=== PATIENT | female | born 1990 | race Caucasian/White ===

== ENCOUNTER 2021-04-19 | Inpatient (IN) | payer BC ==
[2021-04-19] MEDS ORDERED: Water For Irrigation,Sterile 1,000 ML Container IRR PRN (00:31)
[2021-04-19] MEDS ORDERED: Ondansetron 4 MG/2 ML SDV IVPUSH PRN (00:31)
[2021-04-19] MEDS ORDERED: Sodium Chloride 0.9% 20 ML SDV IV PRN (00:31)
[2021-04-19] MEDS ORDERED: Tranexamic Acid 1,000 MG in Sodium Chloride 0.9% 100 ML IV PRN (00:31)
[2021-04-19] MEDS ORDERED: Butorphanol 1 MG/ML SDV IVPUSH PRN (00:31)
[2021-04-19] MEDS ORDERED: Misoprostol 200 MCG Tab PO PRN (00:31)
[2021-04-19] MEDS ORDERED: Methylergonovine 0.2 MG/1 ML Amp IM PRN (00:31)
[2021-04-19] MEDS ORDERED: Nalbuphine 10 MG/1 ML Vial IVPUSH PRN (00:31)
[2021-04-19] MEDS ORDERED: Sodium Chloride 0.9% 2.5 ML Syringe FLUSH PRN (00:31)
[2021-04-19] MEDS ORDERED: Lidocaine 1% 50 ML MDV INJECT PRN (00:31)
[2021-04-19] MEDS ORDERED: Sodium Chloride 0.9% 10 ML Syringe FLUSH PRN (00:31)
[2021-04-19] MEDS ORDERED: Carboprost Tromethamine 250 MCG/1 ML Amp IM PRN (00:31)
[2021-04-19] MEDS: Lactated Ringers 1,000 ML IV SCH ×3 (00:35→09:23)
[2021-04-19] MEDS ORDERED: Oxytocin/0.9 % Sodium Chloride 30 UNIT/500 ML BAG IV SCH ×2 (00:45→02:15)
[2021-04-19] MEDS ORDERED: Misoprostol 25 MCG (1/4 of 100 MCG) Tab VAG ONE (01:39)
[2021-04-19] MEDS ORDERED: Misoprostol 25 MCG (1/4 of 100 MCG) Tab PO ONE (01:39)
[2021-04-19] MEDS ORDERED: Terbutaline 1 MG/ML SDV SUBCUT PRN (02:10)
[2021-04-19] MEDS ORDERED: fentaNYL 100 MCG/2 ML SDV ONE (09:20)
[2021-04-19] MEDS ORDERED: Ropivacaine HCl/PF 200 ML ONE (09:21)
[2021-04-19] MEDS ORDERED: Lidocaine 2% 5 ML SDV ONE (09:21)
[2021-04-19] MEDS ORDERED: ePHEDrine 50 MG/ML SDV IVPUSH PRN ×2 (09:44)
[2021-04-19] MEDS ORDERED: Ropivacaine/PF 400 MG/200 ML PCA EPIDUR SCH (09:45)
--- NOTE | 2021-04-19 09:46 | PCM.PREANE ---
Preanesthetic Assessment - Anesthesia/Transfusion/Family Hx Anesthesia History: Prior Anesthesia Without Reaction Transfusion History: No Prior Transfusion(s) Intubation History: Unknown - Review of Systems General: No Symptoms Pulmonary: No Symptoms Cardiovascular: No Symptoms Gastrointestinal: No Symptoms Neurological: No Symptoms Other: Reports: None - Physical Assessment NPO Status Date: 04/19/21 NPO Status Time: 06:00 Vital Signs: Last Vital Signs Temp 98.2 F 04/19/21 07:15 Pulse 76 04/19/21 07:15 Resp 18 04/19/21 07:15 BP 123/77 04/19/21 07:15 Pulse Ox Height: 5 ft 5 in Weight: 212 lb ASA Class: 2 Mental Status: Alert & Oriented x3 Airway Class: Mallampati = 2 Dentition: Reports: Normal Dentition Thyro-Mental Finger Breadths: 3 Mouth Opening Finger Breadths: 3 ROM/Head Extension: Full Lungs: Clear to Auscultation, Normal Respiratory Effort Cardiovascular: Regular Rate, Regular Rhythm - Lab Values: Laboratory Last Values WBC 9.73 K/uL (4.0-11.0) 04/19/21 00:50 RBC 3.82 M/uL (4.30-5.90) L 04/19/21 00:50 Hgb 9.2 g/dL (12.0-16.0) L 04/19/21 00:50 Hct 28.1 % (36.0-46.0) L 04/19/21 00:50 MCV 73.6 fL (80.0-98.0) L 04/19/21 00:50 MCH 24.1 pg (27.0-32.0) L 04/19/21 00:50 MCHC 32.7 g/dL (31.0-37.0) 04/19/21 00:50 RDW Std Deviation 38.6 fl (28.0-62.0) 04/19/21 00:50 RDW Coeff of Aram 15 % (11.0-15.0) 04/19/21 00:50 Plt Count 232 K/uL (150-400) 04/19/21 00:50 MPV 10.90 fL (7.40-12.00) 04/19/21 00:50 Nucleated RBC % 0.0 /100WBC 04/19/21 00:50 Nucleated RBCs # 0 K/uL 04/19/21 00:50 SARS-CoV-2 RNA (JOHAN) NEGATIVE (NEGATIVE) 04/19/21 00:55 Blood Type O POSITIVE 04/19/21 00:50 Antibody Screen NEGATIVE 04/19/21 00:50 - Allergies Allergies/Adverse Reactions: Allergies Allergy/AdvReac Type Severity Reaction Status Date / Time No Known Allergies Allergy Verified 04/19/21 00:51 - Blood Blood Available: Yes - Acknowledgements Anesthesia Type Planned: Epidural Pt an Appropriate Candidate for the Planned Anesthesia: Yes Alternatives and Risks of Anesthesia Discussed w Pt/Guardian: Yes Pt/Guardian Understands and Agrees with Anesthesia Plan: Yes PreAnesthesia Questionnaire HEENT History: Reports: None Cardiovascular History: Reports: Other (See Below) Other Cardiovascular History: 2019 - PreEclampsia during 2nd Respiratory History: Reports: None Gastrointestinal History: Reports: None Genitourinary History: Reports: None 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 Low serum progesterone level. 2018 - SAB @ 10 weeks. 10/14/2018 - @ 36+6 weeks - female - 6# 5oz - preeclampsia. 11/08/2019 - @ 39+4 weeks - male - 8# 6oz - OP presentation Musculoskeletal History: Reports: Other (See Below) Other Musculoskeletal History: Restless leg syndrome Neurological History: Reports: None Psychiatric History: Reports: Anxiety, Depression Endocrine/Metabolic History: Reports: None Hematologic History: Reports: Anemia Immunologic History: Reports: None Oncologic (Cancer) History: Reports: None Dermatologic History: Reports: None - Infectious Disease History Infectious Disease History: Reports: Chicken Pox - Past Surgical History Head Surgeries/Procedures: Reports: None HEENT Surgical History: Reports: Oral Surgery Other HEENT Surgeries/Procedures: 2014 - [place] Teeth Cardiovascular Surgical History: Reports: None Respiratory Surgical History: Reports: None GI Surgical History: Reports: Other (See Below) Other GI Surgeries/Procedures: Esophageal surgery as a 3 month old r/t reflux Female Surgical History: Reports: LEEP, Other (See Below) Other Female Surgeries/Procedures: 2017 - Colposcopy and LEEP r/t ASCUS, positive high risk HPV and ADITHYA-1 Endocrine Surgical History: Reports: None Neurological Surgical History: Reports: None Musculoskeletal Surgical History: Reports: None Oncologic Surgical History: Reports: None Dermatological Surgical History: Reports: None - SUBSTANCE USE Tobacco Use Status *Q: Never Tobacco User Tobacco Use Within Last Twelve Months: No Second Hand Smoke Exposure: No Recreational Drug Use History: No - HOME MEDS Home Medications: Home Meds Calcium Carbonate [Calcium] 500 mg PO DAILY 11/07/19 [History] No122/Iron/Folic Acid [ Multi Tablet] 1 each PO DAILY 11/07/19 [History] Acetaminophen [Tylenol] 650 mg PO Q4H PRN tablet 11/10/19 [Rx] Ibuprofen [Motrin] 600 mg PO Q4H PRN tablet 11/10/19 [Rx] - CURRENT (IN HOUSE) MEDS Current Meds: Current Medications Butorphanol Tartrate (Butorphanol 1 Mg/Ml Sdv) 1 mg IVPUSH Q1H PRN PRN Reason: Pain (severe 7-10) Last Admin: 04/19/21 07:27 Dose: 1 mg Documented by: Carboprost Tromethamine (Carboprost Tromethamine 250 Mcg/1 Ml Amp) 250 mcg IM ASDIRECTED PRN PRN Reason: Post Hemorrhage Oxytocin/Sodium Chloride (Oxytocin 30 Unit In Ns 0.9% 500 Ml Premix) 30 unit in 500 mls @ 500 mls/hr IV TITRATE SHARI Tranexamic Acid 1,000 mg/ (Sodium Chloride) 110 mls @ 660 mls/hr IV ONETIME PRN PRN Reason: Bleeding Lactated Ringer's (Ringers, Lactated) 1,000 mls @ 150 mls/hr IV ASDIRECTED SHARI Last Admin: 04/19/21 09:23 Dose: 150 mls/hr Documented by: Oxytocin/Sodium Chloride (Oxytocin 30 Unit In Ns 0.9% 500 Ml Premix) 30 unit in 500 mls @ 2 mls/hr IV TITRATE SHARI; Protocol Last Titration: 04/19/21 09:32 Dose: 4 munits/min, 4 mls/hr Documented by: Lidocaine HCl (Lidocaine 1% 50 Ml Mdv) 50 ml INJECT ONETIME PRN PRN Reason: Laceration repair Methylergonovine Maleate (Methylergonovine 0.2 Mg/1 Ml Amp) 0.2 mg IM ASDIRECTED PRN PRN Reason: Post Hemorrhage Misoprostol (Misoprostol 200 Mcg Tab) 200 mcg PO ONETIME PRN PRN Reason: Post Hemorrhage Nalbuphine HCl (Nalbuphine 10 Mg/1 Ml Vial) 10 mg IVPUSH Q1H PRN PRN Reason: Pain (severe 7-10) Ondansetron HCl (Ondansetron 4 Mg/2 Ml Sdv) 4 mg IVPUSH Q4H PRN PRN Reason: Nausea/Vomiting Sodium Chloride (Sodium Chloride 0.9% 10 Ml Syringe) 10 ml FLUSH ASDIRECTED PRN PRN Reason: Keep Vein Open Sodium Chloride (Sodium Chloride 0.9% 2.5 Ml Syringe) 2.5 ml FLUSH ASDIRECTED PRN PRN Reason: Keep Vein Open Sodium Chloride (Sodium Chloride 0.9% 20 Ml Sdv) 10 ml IV ASDIRECTED PRN PRN Reason: IV Use Sterile Water (Water For Irrigation,Sterile 1,000 Ml Container) 1,000 ml IRR ASDIRECTED PRN PRN Reason: delivery Terbutaline Sulfate (Terbutaline 1 Mg/Ml Sdv) 0.25 mg SUBCUT ASDIRECTED PRN PRN Reason: Tacysystole Discontinued Medications Fentanyl (Fentanyl 100 Mcg/2 Ml Sdv) Confirm Administered Dose 100 mcg .ROUTE .STK-MED ONE Stop: 04/19/21 09:21 Ropivacaine (Naropin 0.2%) Confirm Administered Dose 200 mls @ as directed .ROUTE .STK-MED ONE Stop: 04/19/21 09:22 Lidocaine (Lidocaine 2% 5 Ml Sdv) Confirm Administered Dose 5 ml .ROUTE .STK-MED ONE Stop: 04/19/21 09:22 Misoprostol (Misoprostol 25 Mcg (1/4 Of 100 Mcg) Tab) 25 mcg PO ONETIME ONE Stop: 04/19/21 01:40 Last Admin: 04/19/21 01:54 Dose: Not Given Documented by: Misoprostol (Misoprostol 25 Mcg (1/4 Of 100 Mcg) Tab) 25 mcg VAG ONETIME ONE Stop: 04/19/21 01:40 Last Admin: 04/19/21 01:51 Dose: 25 mcg Documented by:
--- NOTE | 2021-04-19 09:47 | PCM.POSTAN ---
POST ANESTHESIA ASSESSMENT - MENTAL STATUS Mental Status: Alert, Oriented - VITAL SIGNS Vital Signs: Last Vital Signs Temp 98.2 F 04/19/21 07:15 Pulse 76 04/19/21 07:15 Resp 18 04/19/21 07:15 BP 123/77 04/19/21 07:15 Pulse Ox - RESPIRATORY Respiratory Status: Respiratory Rate WNL, Airway Patent, O2 Saturation Stable - CARDIOVASCULAR CV Status: Pulse Rate WNL, Blood Pressure Stable - GASTROINTESTINAL GI Status: No Symptoms - POST OP HYDRATION Hydration Status: Adequate & Stable
--- NOTE | 2021-04-19 09:51 | PCM.SN.2 ---
- Pre-Procedure Checklist Attending Provider Aware: Yes Chart Reviewed: Yes Consent Signed: Yes Labs Reviewed: Yes VS/FHR Reviewed: Yes Patient Identification Confirmation Method: Reports: ID Band Visual, Verbal Patient Pt an Appropriate Candidate for the Planned Anesthesia: Yes Alternatives and Risks of Anesthesia Discussed w Pt/Guardian: Yes - Procedure Procedure Start Date: 04/19/21 Procedure Start Time: 09:[address]: Reports: Blood Pressure, Heart Rate, SPO2 Functional IV: Yes Safety Measures: Reports: Patient Identified, Procedure Verified, Site Verified, Procedure Time Out Patient Position: Reports: Sitting Prep: Reports: Alcohol x3, Betadine x3 Local Anesthetic: Reports: Intradermal Wheal w Lidocaine 1% Regional Placement Level: Reports: L2-3 Needle: Reports: 17 g Touhy Approach: Reports: Midline Technique: Reports: WILSON Glass Syringe Parasthesia: Reports: None Fluid Obtained: Reports: None Test Dose Medication: Reports: Lidocaine 1.5% w Epinephrine 1:200,000 Test Dose Response: Reports: Negative Loading Dose Time: 09:15 Loading Dose Medication: Fentanyl 100mcg Continuous Infusion Start Time: 09:20 Continuous Infusion Medication: 0.2% Naropin Continuous Infusion Rate: 15 Continuous Infusion PCS Bolus Option: 4 Continuous Infusion Lockout Dose (cc/hr): 20 Patient Position Post Placement: Reports: Supline/YANNA Post-procedure Pain Level: 2 VS and FHR Monitored in Unit Post Placement: Yes Procedure End Date: 04/19/21 Procedure End Time: 10:11
[2021-04-19] MEDS ORDERED: Benzocaine/Menthol 20%-0.5% Spray 78 GM Cannister TOP PRN (12:46)
[2021-04-19] MEDS ORDERED: Lanolin 100% Cream 7 GM Tube TOP PRN (12:46)
[2021-04-19] MEDS ORDERED: Bisacodyl 10 MG Supp RECTAL PRN (12:46)
[2021-04-19] MEDS ORDERED: oxyCODONE 5 MG Tab PO PRN (12:46)
[2021-04-19] MEDS ORDERED: Docusate Sodium 100 MG Cap PO PRN (12:46)
[2021-04-19] MEDS ORDERED: Acetaminophen 500 MG Tab PO PRN (12:46)
[2021-04-19] MEDS ORDERED: Witch Hazel Medicated Pads 40/Jar TOP PRN (12:46)
[2021-04-19] MEDS ORDERED: Ibuprofen 400 MG Tab PO PRN (12:46)
--- NOTE | 2021-04-19 12:50 | PCM.DEL ---
L & D Note - General Info Date of Service: 04/19/21 Mother's Due Date: 04/26/21 - Delivery Note Labor: Augmented by Oxytocin Cervical Ripening Method: Misoprostil Delivery Outcome: Livebirth Delivery Method: Spontaneous Vaginal Delivery-Single Presentation: Left Occiput Anterior (DENNYS) Nuchal Cord: Present (x1, tight) Anesthesia Type: Epidural Amniotic Fluid Description: Clear Episiotomy Type: None Laceration: 1st Degree Suture type: Vicryl Suture size: 2-0 Placenta: Intact, Spontaneous Cord: 3 Vessels Estimated Blood Loss: 200 Resuscitation Needed: No : Bulb Syringe, Stimulated, Moca Used Provider: Caron Zavala Score 1 min: 8 Score 5 min: 9 Delivery Comments (Free Text/Narrative):: Dictation #[id number] - General Info Date of Service: 04/19/21 - Patient Data Vitals - Most Recent: Last Vital Signs Temp 98.2 F 04/19/21 07:15 Pulse 76 04/19/21 07:15 Resp 18 04/19/21 07:15 BP 123/77 04/19/21 07:15 Pulse Ox Weight - Most Recent: 212 lb I&O - Last 24 Hours: Intake & Output 04/18/21 04/19/21 04/19/21 22:59 06:59 14:59 Intake Total 1907 Balance 1907 Lab Results Last 24 Hours: Laboratory Results - last 24 hr 04/19/21 04/19/21 04/19/21 Range/Units 00:50 00:50 00:55 WBC 9.73 (4.0-11.0) K/uL RBC 3.82 L (4.30-5.90) M/uL Hgb 9.2 L (12.0-16.0) g/dL Hct 28.1 L (36.0-46.0) % MCV 73.6 L (80.0-98.0) fL MCH 24.1 L (27.0-32.0) pg MCHC 32.7 (31.0-37.0) g/dL RDW Std Deviation 38.6 (28.0-62.0) fl RDW Coeff of Aram 15 (11.0-15.0) % Plt Count 232 (150-400) K/uL MPV 10.90 (7.40-12.00) fL Nucleated RBC % 0.0 /100WBC Nucleated RBCs # 0 K/uL SARS-CoV-2 RNA (JOHAN) NEGATIVE (NEGATIVE) Blood Type O POSITIVE Antibody Screen NEGATIVE Med Orders - Current: Current Medications Butorphanol Tartrate (Butorphanol 1 Mg/Ml Sdv) 1 mg IVPUSH Q1H PRN PRN Reason: Pain (severe 7-10) Last Admin: 04/19/21 07:27 Dose: 1 mg Documented by: Carboprost Tromethamine (Carboprost Tromethamine 250 Mcg/1 Ml Amp) 250 mcg IM ASDIRECTED PRN PRN Reason: Post Hemorrhage Ephedrine Sulfate (Ephedrine 50 Mg/Ml Sdv) 10 mg IVPUSH Q1M PRN PRN Reason: Hypotension Ephedrine Sulfate (Ephedrine 50 Mg/Ml Sdv) 10 mg IVPUSH Q5M PRN PRN Reason: Hypotension Oxytocin/Sodium Chloride (Oxytocin 30 Unit In Ns 0.9% 500 Ml Premix) 30 unit in 500 mls @ 500 mls/hr IV TITRATE SHARI Tranexamic Acid 1,000 mg/ (Sodium Chloride) 110 mls @ 660 mls/hr IV ONETIME PRN PRN Reason: Bleeding Lactated Ringer's (Ringers, Lactated) 1,000 mls @ 150 mls/hr IV ASDIRECTED SHARI Last Admin: 04/19/21 09:23 Dose: 150 mls/hr Documented by: Oxytocin/Sodium Chloride (Oxytocin 30 Unit In Ns 0.9% 500 Ml Premix) 30 unit in 500 mls @ 2 mls/hr IV TITRATE SHARI; Protocol Last Titration: 04/19/21 10:48 Dose: 0 munits/min, 0 mls/hr Documented by: Lidocaine HCl (Lidocaine 1% 50 Ml Mdv) 50 ml INJECT ONETIME PRN PRN Reason: Laceration repair Methylergonovine Maleate (Methylergonovine 0.2 Mg/1 Ml Amp) 0.2 mg IM ASDIRECTED PRN PRN Reason: Post Hemorrhage Miscellaneous Medication (Phenylephrine Hcl In 0.9% Nacl 1 Mg/10 Ml Syringe) 0.1 mg IVPUSH Q1M PRN PRN Reason: Hypotension Misoprostol (Misoprostol 200 Mcg Tab) 200 mcg PO ONETIME PRN PRN Reason: Post Hemorrhage Nalbuphine HCl (Nalbuphine 10 Mg/1 Ml Vial) 10 mg IVPUSH Q1H PRN PRN Reason: Pain (severe 7-10) Ondansetron HCl (Ondansetron 4 Mg/2 Ml Sdv) 4 mg IVPUSH Q4H PRN PRN Reason: Nausea/Vomiting Ropivacaine (Ropivacaine/Pf 400 Mg/200 Ml Instructor Warper) 400 mg EPIDUR ASDIRECTED SHARI Sodium Chloride (Sodium Chloride 0.9% 10 Ml Syringe) 10 ml FLUSH ASDIRECTED PRN PRN Reason: Keep Vein Open Sodium Chloride (Sodium Chloride 0.9% 2.5 Ml Syringe) 2.5 ml FLUSH ASDIRECTED PRN PRN Reason: Keep Vein Open Sodium Chloride (Sodium Chloride 0.9% 20 Ml Sdv) 10 ml IV ASDIRECTED PRN PRN Reason: IV Use Sterile Water (Water For Irrigation,Sterile 1,000 Ml Container) 1,000 ml IRR ASDIRECTED PRN PRN Reason: delivery Terbutaline Sulfate (Terbutaline 1 Mg/Ml Sdv) 0.25 mg SUBCUT ASDIRECTED PRN PRN Reason: Tacysystole Discontinued Medications Fentanyl (Fentanyl 100 Mcg/2 Ml Sdv) Confirm Administered Dose 100 mcg .ROUTE .STK-MED ONE Stop: 04/19/21 09:21 Ropivacaine (Naropin 0.2%) Confirm Administered Dose 200 mls @ as directed .ROUTE .STK-MED ONE Stop: 04/19/21 09:22 Lidocaine (Lidocaine 2% 5 Ml Sdv) Confirm Administered Dose 5 ml .ROUTE .STK-MED ONE Stop: 04/19/21 09:22 Misoprostol (Misoprostol 25 Mcg (1/4 Of 100 Mcg) Tab) 25 mcg PO ONETIME ONE Stop: 04/19/21 01:40 Last Admin: 04/19/21 01:54 Dose: Not Given Documented by: Misoprostol (Misoprostol 25 Mcg (1/4 Of 100 Mcg) Tab) 25 mcg VAG ONETIME ONE Stop: 04/19/21 01:40 Last Admin: 04/19/21 01:51 Dose: 25 mcg Documented by: - Exam Urinary Catheter Total Time: 0Days 0Hours - Problem List Review Problem List Initiated/Reviewed/Updated: Yes - My Orders Last 24 Hours: My Active Orders 04/19/21 00:00 Patient Status [ADT] Routine 04/19/21 00:31 Heart Tones [RC] CONTINUOUS Non Stress Test [RC] PER UNIT ROUTINE May Shower [RC] ASDIRECTED Notify Provider [RC] PRN Up ad Eim [RC] ASDIRECTED Vaginal Exam [RC] PRN Vital Signs [RC] PER UNIT ROUTINE Butorphanol [Stadol] 1 mg IVPUSH Q1H PRN Carboprost Tromethamine [Hemabate DS] 250 mcg IM ASDIRECTED PRN Lidocaine 1% [Xylocaine 1%] 50 ml INJECT ONETIME PRN Methylergonovine [Methergine] 0.2 mg IM ASDIRECTED PRN Nalbuphine [Nubain] 10 mg IVPUSH Q1H PRN Ondansetron [Zofran] 4 mg IVPUSH Q4H PRN Sodium Chloride 0.9% [Normal Saline] 10 ml IV ASDIRECTED PRN Sodium Chloride 0.9% [Saline Flush] 10 ml FLUSH ASDIRECTED PRN Sodium Chloride 0.9% [Saline Flush] 2.5 ml FLUSH ASDIRECTED PRN Tranexamic Acid [Cyklokapron] 1,000 mg Sodium Chloride 0.9% [Normal Saline] 100 ml IV ONETIME Water For Irrigation,Sterile [Sterile Water for Irrigation] 1,000 ml IRR ASDIRECTED PRN miSOPROStoL [Cytotec] 200 mcg PO ONETIME PRN Scalp Electrode [WOMSER] Per Unit Routine Peripheral IV Insertion Adult [OM.PC] Routine Resuscitation Status Routine 04/19/21 00:45 Lactated Ringers [Ringers, Lactated] 1,000 ml IV ASDIRECTED Oxytocin/0.9 % Sodium Chloride [Oxytocin 30 Unit in NS 0.9% 500 ML Premix] 30 unit in 500 ml IV TITRATE 04/19/21 00:50 RPR (SYPHILIS SERO) W/ RFLX [REF] Routine 04/19/21 02:10 Terbutaline [Brethine] 0.25 mg SUBCUT ASDIRECTED PRN 04/19/21 02:11 Bedrest Bathroom Privileges [RC] ASDIRECTED Communication Order [RC] ASDIRECTED Communication Order [RC] ASDIRECTED Communication Order [RC] ASDIRECTED Notify Provider [RC] PRN Notify Provider [RC] PRN Notify Provider [RC] STAT Oxygen Therapy [RC] ASDIRECTED Vaginal Exam [RC] PRN Vital Signs [RC] PER UNIT ROUTINE 04/19/21 02:15 Oxytocin/0.9 % Sodium Chloride [Oxytocin 30 Unit in NS 0.9% 500 ML Premix] 30 unit in 500 ml IV TITRATE Medication Administration Instruction [OM.PC] Q3H 04/19/21 12:46 Patient Status [ADT] Routine May Shower [RC] ASDIRECTED Up ad Emi [RC] ASDIRECTED Vital Signs [RC] PER UNIT ROUTINE Acetaminophen [Tylenol Extra Strength] 1,000 mg PO Q4H PRN Acetaminophen [Tylenol Extra Strength] 500 mg PO Q4H PRN Benzocaine/Menthol [Dermoplast Pain Relief 20%-0.5% [place]] 78 gm TOP ASDIRECTED PRN Docusate Sodium [Colace] 100 mg PO Q12H PRN Ibuprofen [Motrin] 400 mg PO Q4H PRN Ibuprofen [Motrin] 800 mg PO Q6H PRN Lanolin [Lansinoh HPA] See Dose Instructions TOP ASDIRECTED PRN bisacodyL [Dulcolax] 10 mg RECTAL ONETIME PRN oxyCODONE 5 mg PO Q2H PRN witch Ce [Tucks] 1 pad TOP ASDIRECTED PRN Assess Lochia [WOMSER] Per Unit Routine Assess Uterine Involution [WOMSER] Per Unit Routine Peripheral IV Discontinue [OM.PC] Routine 04/20/21 05:11 HEMOGLOBIN/HEMATOCRIT,HH [HEME] Timed - Assessment Assessment:: 31 year old G4 now P3013 female PPD0 s/p at 39w0d - Plan Plan:: Routine cares * Rh positive, rubella immune, GBS negative * PO pain medication ordered PRN * Regular diet as tolerated * Encourage ambulation and fluid intake when able * Planning on bottlefeeding Dispo: stable. Admit to floor and anticipate routine course.
[2021-04-19] MEDS: Ibuprofen 800 MG Tab PO PRN ×2 (13:11→18:59)
--- NOTE | 2021-04-19 17:23 | PCM48HPAN ---
Post Anesthesia Note - EVALUATION WITHIN 48HRS OF ANESTHETIC Vital Signs in Normal Range: Yes Patient Participated in Evaluation: Yes Respiratory Function Stable: Yes Airway Patent: Yes Cardiovascular Function Stable: Yes Hydration Status Stable: Yes Pain Control Satisfactory: Yes Nausea and Vomiting Control Satisfactory: Yes Mental Status Recovered: Yes Vital Signs: Last Vital Signs Temp 97.0 F 04/19/21 15:58 Pulse 58 L 04/19/21 15:58 Resp 18 04/19/21 15:58 BP 109/62 04/19/21 15:58 Pulse Ox 100 04/19/21 15:58
--- NOTE | 2021-04-19 20:02 | OR ---
SURGEON: CARON ZAVALA MD DATE OF PROCEDURE: 04/19/2021 PREOPERATIVE DIAGNOSES: 1. Term intrauterine at 39 weeks and 0 days. 2. Lives remote from facility. 3. History of precipitous labor. POSTOPERATIVE DIAGNOSES: 1. Term intrauterine at 39 weeks and 0 days. 2. Lives remote from facility. 3. History of precipitous labor. PROCEDURES PERFORMED: 1. Spontaneous vaginal delivery. 2. First-degree midline laceration repair. PRIMARY SURGEON: Caron Zavala MD ANESTHESIA: Epidural. ANESTHESIOLOGIST: Dr. René Latif. ESTIMATED BLOOD LOSS: 200 mL. COMPLICATIONS: None known. FINDINGS: Viable male infant, scores of 8 at 1 minute and 9 at 5 minutes. Weight 3530 g. Spontaneous vaginal delivery. Intact placenta, three-vessel cord. Clear amniotic fluid. First-degree perineal laceration. DISPOSITION: The patient in LDRP. Infant remained with the patient. PROCEDURE INDICATION: Patient is a 31-year-old, 4, para 2, who presented to Labor and Delivery in center receptionist of 04/19/2021 for induction of labor at 39 weeks and 0 days due to living remote from facility and history of precipitous labor. She was administered one dose of vaginal Cytotec, and her cervical exam was noted to change from 1 cm to 3 cm. After the patient was evaluated by physician at approximately 9 a.m., she received an epidural and Pitocin was initiated for augmentation of labor. Labor progressed quickly and spontaneous rupture of membrane occurred with clear fluid. At approximately 11:39, the patient was noted to be 10 cm dilated at 0 station and was allowed to labor down for approximately 40 minutes. I was then notified that the patient was completely dilated and +2 station with the urge to push. PROCEDURE DETAILS: Upon my arrival to the room, the patient was placed in the modified dorsal lithotomy position and began pushing efforts. She pushed readily over one contraction and was able to deliver infant's head atraumatically spontaneously in occiput anterior position, restituted DENNYS. A loose nuchal cord was noted x1 and delivered through. The infant's oropharynx and nares were then bulb suctioned. The was then placed on maternal abdomen with the attending nursing staff at the side. After a delay, the cord was clamped and cut. Venous and cord blood gases were then obtained. Light fundal pressure was applied while the placenta was delivered spontaneously intact. Fundal massage was then performed while 30 units of Pitocin was delivered in 500 mL of IV fluid. Upon inspection of the perineum, vaginal side wall, and the cervix, a small first- degree laceration was noted. This was repaired with a [id number] suture of 2-0 Vicryl. Hemostasis appeared to be evident. The uterus remained firm. Sponge, lap, and needle count were correct. The patient tolerated the procedure well and remained in her room with infant at this time. ANNMARIE DUNCAN /[id number] BENJAMÍN
[2021-04-19] MEDS: Acetaminophen 500 MG Tab PO PRN (23:06)
[2021-04-20] MEDS: Ibuprofen 800 MG Tab PO PRN ×2 (06:51→16:44)
--- NOTE | 2021-04-20 08:15 | PCM.PNPP ---
- General Info Date of Service: 04/20/21 Subjective Update: Doing well today. Bleeding and pain minimal. Ambulating without dizziness. Functional Status: Reports: Pain Controlled, Tolerating Diet, Ambulating, Urinating - Review of Systems General: Reports: No Symptoms HEENT: Reports: No Symptoms Pulmonary: Reports: No Symptoms Cardiovascular: Reports: No Symptoms Gastrointestinal: Reports: No Symptoms Genitourinary: Reports: No Symptoms Musculoskeletal: Reports: No Symptoms Skin: Reports: No Symptoms Neurological: Reports: No Symptoms Psychiatric: Reports: No Symptoms - Patient Data Vital Signs - Most Recent: Last Vital Signs Temp 36.4 C 04/20/21 04:00 Pulse 66 04/20/21 04:00 Resp 16 04/20/21 04:00 BP 120/61 04/20/21 04:00 Pulse Ox 97 04/20/21 04:00 Weight - Most Recent: 96.162 kg Lab Results - Last 24 Hours: Laboratory Results - last 24 hr 04/20/21 Range/Units 06:10 Hgb 8.1 L (12.0-16.0) g/dL Hct 24.9 L (36.0-46.0) % Med Orders - Current: Current Medications Acetaminophen (Acetaminophen 500 Mg Tab) 500 mg PO Q4H PRN PRN Reason: Pain (mild 1-3) Last Admin: 04/19/21 15:29 Dose: 500 mg Documented by: Acetaminophen (Acetaminophen 500 Mg Tab) 1,000 mg PO Q4H PRN PRN Reason: Pain (mild 1-3) Last Admin: 04/19/21 23:06 Dose: 1,000 mg Documented by: Benzocaine/Menthol (Benzocaine/Menthol 20%-0.5% [place] 78 Gm Cannister) 78 gm TOP ASDIRECTED PRN PRN Reason: Perineal Comfort Measure Last Admin: 04/19/21 13:13 Dose: 1 applic Documented by: Bisacodyl (Bisacodyl 10 Mg Supp) 10 mg RECTAL ONETIME PRN PRN Reason: Constipation Butorphanol Tartrate (Butorphanol 1 Mg/Ml Sdv) 1 mg IVPUSH Q1H PRN PRN Reason: Pain (severe 7-10) Last Admin: 04/19/21 07:27 Dose: 1 mg Documented by: Carboprost Tromethamine (Carboprost Tromethamine 250 Mcg/1 Ml Amp) 250 mcg IM ASDIRECTED PRN PRN Reason: Post Hemorrhage Docusate Sodium (Docusate Sodium 100 Mg Cap) 100 mg PO Q12H PRN PRN Reason: Constipation Emollient Ointment (Lanolin 100% Cream 7 Gm Tube) 0 gm TOP ASDIRECTED PRN PRN Reason: Sore Nipples Ephedrine Sulfate (Ephedrine 50 Mg/Ml Sdv) 10 mg IVPUSH Q1M PRN PRN Reason: Hypotension Ephedrine Sulfate (Ephedrine 50 Mg/Ml Sdv) 10 mg IVPUSH Q5M PRN PRN Reason: Hypotension Oxytocin/Sodium Chloride (Oxytocin 30 Unit In Ns 0.9% 500 Ml Premix) 30 unit in 500 mls @ 500 mls/hr IV TITRATE SHARI Tranexamic Acid 1,000 mg/ (Sodium Chloride) 110 mls @ 660 mls/hr IV ONETIME PRN PRN Reason: Bleeding Lactated Ringer's (Ringers, Lactated) 1,000 mls @ 150 mls/hr IV ASDIRECTED SHARI Last Admin: 04/19/21 09:23 Dose: 150 mls/hr Documented by: Oxytocin/Sodium Chloride (Oxytocin 30 Unit In Ns 0.9% 500 Ml Premix) 30 unit in 500 mls @ 2 mls/hr IV TITRATE SHARI; Protocol Last Titration: 04/19/21 10:48 Dose: 0 munits/min, 0 mls/hr Documented by: Ibuprofen (Ibuprofen 400 Mg Tab) 400 mg PO Q4H PRN PRN Reason: Pain (mild 1-3) Ibuprofen (Ibuprofen 800 Mg Tab) 800 mg PO Q6H PRN PRN Reason: Cramping Last Admin: 04/20/21 06:51 Dose: 800 mg Documented by: Lidocaine HCl (Lidocaine 1% 50 Ml Mdv) 50 ml INJECT ONETIME PRN PRN Reason: Laceration repair Methylergonovine Maleate (Methylergonovine 0.2 Mg/1 Ml Amp) 0.2 mg IM ASDIRECTED PRN PRN Reason: Post Hemorrhage Miscellaneous Medication (Phenylephrine Hcl In 0.9% Nacl 1 Mg/10 Ml Syringe) 0.1 mg IVPUSH Q1M PRN PRN Reason: Hypotension Misoprostol (Misoprostol 200 Mcg Tab) 200 mcg PO ONETIME PRN PRN Reason: Post Hemorrhage Nalbuphine HCl (Nalbuphine 10 Mg/1 Ml Vial) 10 mg IVPUSH Q1H PRN PRN Reason: Pain (severe 7-10) Ondansetron HCl (Ondansetron 4 Mg/2 Ml Sdv) 4 mg IVPUSH Q4H PRN PRN Reason: Nausea/Vomiting Last Admin: 04/19/21 12:12 Dose: 4 mg Documented by: Oxycodone HCl (Oxycodone 5 Mg Tab) 5 mg PO Q2H PRN PRN Reason: Pain (severe 7-10) Last Admin: 04/19/21 15:30 Dose: 5 mg Documented by: Ropivacaine (Ropivacaine/Pf 400 Mg/200 Ml Electrical Mechanical Technician) 400 mg EPIDUR ASDIRECTED SAHRI Sodium Chloride (Sodium Chloride 0.9% 10 Ml Syringe) 10 ml FLUSH ASDIRECTED PRN PRN Reason: Keep Vein Open Sodium Chloride (Sodium Chloride 0.9% 2.5 Ml Syringe) 2.5 ml FLUSH ASDIRECTED PRN PRN Reason: Keep Vein Open Sodium Chloride (Sodium Chloride 0.9% 20 Ml Sdv) 10 ml IV ASDIRECTED PRN PRN Reason: IV Use Sterile Water (Water For Irrigation,Sterile 1,000 Ml Container) 1,000 ml IRR ASDIRECTED PRN PRN Reason: delivery Terbutaline Sulfate (Terbutaline 1 Mg/Ml Sdv) 0.25 mg SUBCUT ASDIRECTED PRN PRN Reason: Tacysystole Witch Joy (Witch Joy Medicated Pads 40/Jar) 1 pad TOP ASDIRECTED PRN PRN Reason: comfort care Last Admin: 04/19/21 13:13 Dose: 1 applic Documented by: Discontinued Medications Fentanyl (Fentanyl 100 Mcg/2 Ml Sdv) Confirm Administered Dose 100 mcg .ROUTE .STK-MED ONE Stop: 04/19/21 09:21 Last Admin: 04/19/21 19:16 Dose: Not Given Documented by: Ropivacaine (Naropin 0.2%) Confirm Administered Dose 200 mls @ as directed .ROUTE .STK-MED ONE Stop: 04/19/21 09:22 Last Admin: 04/19/21 19:16 Dose: Not Given Documented by: Lidocaine (Lidocaine 2% 5 Ml Sdv) Confirm Administered Dose 5 ml .ROUTE .STK-MED ONE Stop: 04/19/21 09:22 Last Admin: 04/19/21 19:16 Dose: Not Given Documented by: Misoprostol (Misoprostol 25 Mcg (1/4 Of 100 Mcg) Tab) 25 mcg PO ONETIME ONE Stop: 04/19/21 01:40 Last Admin: 04/19/21 01:54 Dose: Not Given Documented by: Misoprostol (Misoprostol 25 Mcg (1/4 Of 100 Mcg) Tab) 25 mcg VAG ONETIME ONE Stop: 04/19/21 01:40 Last Admin: 04/19/21 01:51 Dose: 25 mcg Documented by: - Infant Interaction Disposition, : in Room with Family Feeding: Bottle Fed Infant Support Person: - Recovery Exam Fundal Tone: Firm Fundal Level: 1 Fingerbreadths Below Umbilicus Fundal Placement: Midline Lochia Amount: Scant, Small Lochia Color: Rubra/Red Other Perinuem Description: 1st degree laceration. Bladder Status: Voiding Urinary Elimination: Voided - Exam General: Alert, Oriented Neck: Supple Lungs: Normal Respiratory Effort GI/Abdominal Exam: Soft, Non-Tender, No Distention Extremities: Non-Tender, No Pedal Edema Skin: Warm, Dry, Intact Neurological: No New Focal Deficit Psy/Mental Status: Alert, Normal Affect, Normal Mood - Problem List & Annotations (1) Vaginal delivery SNOMED Code(s): 821107464 Code(s): O80 - ENCOUNTER FOR FULL-TERM UNCOMPLICATED DELIVERY Status: Acute Current Visit: No - Problem List Review Problem List Initiated/Reviewed/Updated: Yes - My Orders Last 24 Hours: My Active Orders 04/20/21 08:13 Ready for Discharge [RC] PER UNIT ROUTINE - Assessment Assessment:: 31 year old G4 now P3013 female PPD1 s/p at 39w0d - Plan Plan:: Routine cares * Rh positive, rubella immune, GBS negative * PO pain medication ordered PRN * Regular diet as tolerated Dispo: Plan discharge home today if baby cleared by Chip Separator. Reviewed discharge instructions/precautions. All questions answered.
[2021-04-20] MEDS: Acetaminophen 500 MG Tab PO PRN (16:45)
[2021-04-21 08:24] VITALS: BP 110/76; PULSE 98
--- NOTE | 2021-04-21 09:13 | PCM.PNPP ---
- General Info Date of Service: 04/21/21 Subjective Update: Patient doing well this morning, has no complaints. Pain and bleeding minimal. Functional Status: Reports: Pain Controlled, Tolerating Diet, Ambulating, Urinating - Review of Systems General: Reports: No Symptoms HEENT: Reports: No Symptoms Pulmonary: Reports: No Symptoms Cardiovascular: Reports: No Symptoms Gastrointestinal: Reports: No Symptoms Genitourinary: Reports: No Symptoms Musculoskeletal: Reports: No Symptoms Skin: Reports: No Symptoms Neurological: Reports: No Symptoms Psychiatric: Reports: No Symptoms - Patient Data Vital Signs - Most Recent: Last Vital Signs Temp 36.7 C 04/21/21 08:23 Pulse 98 04/21/21 08:23 Resp 18 04/21/21 08:23 BP 110/76 04/21/21 08:23 Pulse Ox 96 04/21/21 08:23 Weight - Most Recent: 96.162 kg Med Orders - Current: Current Medications Acetaminophen (Acetaminophen 500 Mg Tab) 500 mg PO Q4H PRN PRN Reason: Pain (mild 1-3) Last Admin: 04/19/21 15:29 Dose: 500 mg Documented by: Acetaminophen (Acetaminophen 500 Mg Tab) 1,000 mg PO Q4H PRN PRN Reason: Pain (mild 1-3) Last Admin: 04/20/21 16:45 Dose: 1,000 mg Documented by: Benzocaine/Menthol (Benzocaine/Menthol 20%-0.5% [place] 78 Gm Cannister) 78 gm TOP ASDIRECTED PRN PRN Reason: Perineal Comfort Measure Last Admin: 04/19/21 13:13 Dose: 1 applic Documented by: Bisacodyl (Bisacodyl 10 Mg Supp) 10 mg RECTAL ONETIME PRN PRN Reason: Constipation Butorphanol Tartrate (Butorphanol 1 Mg/Ml Sdv) 1 mg IVPUSH Q1H PRN PRN Reason: Pain (severe 7-10) Last Admin: 04/19/21 07:27 Dose: 1 mg Documented by: Carboprost Tromethamine (Carboprost Tromethamine 250 Mcg/1 Ml Amp) 250 mcg IM ASDIRECTED PRN PRN Reason: Post Hemorrhage Docusate Sodium (Docusate Sodium 100 Mg Cap) 100 mg PO Q12H PRN PRN Reason: Constipation Emollient Ointment (Lanolin 100% Cream 7 Gm Tube) 0 gm TOP ASDIRECTED PRN PRN Reason: Sore Nipples Ephedrine Sulfate (Ephedrine 50 Mg/Ml Sdv) 10 mg IVPUSH Q1M PRN PRN Reason: Hypotension Ephedrine Sulfate (Ephedrine 50 Mg/Ml Sdv) 10 mg IVPUSH Q5M PRN PRN Reason: Hypotension Oxytocin/Sodium Chloride (Oxytocin 30 Unit In Ns 0.9% 500 Ml Premix) 30 unit in 500 mls @ 500 mls/hr IV TITRATE SHARI Tranexamic Acid 1,000 mg/ (Sodium Chloride) 110 mls @ 660 mls/hr IV ONETIME PRN PRN Reason: Bleeding Lactated Ringer's (Ringers, Lactated) 1,000 mls @ 150 mls/hr IV ASDIRECTED SHARI Last Admin: 04/19/21 09:23 Dose: 150 mls/hr Documented by: Oxytocin/Sodium Chloride (Oxytocin 30 Unit In Ns 0.9% 500 Ml Premix) 30 unit in 500 mls @ 2 mls/hr IV TITRATE SHARI; Protocol Last Titration: 04/19/21 10:48 Dose: 0 munits/min, 0 mls/hr Documented by: Ibuprofen (Ibuprofen 400 Mg Tab) 400 mg PO Q4H PRN PRN Reason: Pain (mild 1-3) Ibuprofen (Ibuprofen 800 Mg Tab) 800 mg PO Q6H PRN PRN Reason: Cramping Last Admin: 04/20/21 16:44 Dose: 800 mg Documented by: Lidocaine HCl (Lidocaine 1% 50 Ml Mdv) 50 ml INJECT ONETIME PRN PRN Reason: Laceration repair Methylergonovine Maleate (Methylergonovine 0.2 Mg/1 Ml Amp) 0.2 mg IM ASDIRECTED PRN PRN Reason: Post Hemorrhage Miscellaneous Medication (Phenylephrine Hcl In 0.9% Nacl 1 Mg/10 Ml Syringe) 0.1 mg IVPUSH Q1M PRN PRN Reason: Hypotension Misoprostol (Misoprostol 200 Mcg Tab) 200 mcg PO ONETIME PRN PRN Reason: Post Hemorrhage Nalbuphine HCl (Nalbuphine 10 Mg/1 Ml Vial) 10 mg IVPUSH Q1H PRN PRN Reason: Pain (severe 7-10) Ondansetron HCl (Ondansetron 4 Mg/2 Ml Sdv) 4 mg IVPUSH Q4H PRN PRN Reason: Nausea/Vomiting Last Admin: 04/19/21 12:12 Dose: 4 mg Documented by: Oxycodone HCl (Oxycodone 5 Mg Tab) 5 mg PO Q2H PRN PRN Reason: Pain (severe 7-10) Last Admin: 04/19/21 15:30 Dose: 5 mg Documented by: Ropivacaine (Ropivacaine/Pf 400 Mg/200 Ml Crop Farm Helper) 400 mg EPIDUR ASDIRECTED SHARI Sodium Chloride (Sodium Chloride 0.9% 10 Ml Syringe) 10 ml FLUSH ASDIRECTED PRN PRN Reason: Keep Vein Open Sodium Chloride (Sodium Chloride 0.9% 2.5 Ml Syringe) 2.5 ml FLUSH ASDIRECTED PRN PRN Reason: Keep Vein Open Sodium Chloride (Sodium Chloride 0.9% 20 Ml Sdv) 10 ml IV ASDIRECTED PRN PRN Reason: IV Use Sterile Water (Water For Irrigation,Sterile 1,000 Ml Container) 1,000 ml IRR ASDIRECTED PRN PRN Reason: delivery Terbutaline Sulfate (Terbutaline 1 Mg/Ml Sdv) 0.25 mg SUBCUT ASDIRECTED PRN PRN Reason: Tacysystole Witch Joy (Witch Joy Medicated Pads 40/Jar) 1 pad TOP ASDIRECTED PRN PRN Reason: comfort care Last Admin: 04/19/21 13:13 Dose: 1 applic Documented by: Discontinued Medications Fentanyl (Fentanyl 100 Mcg/2 Ml Sdv) Confirm Administered Dose 100 mcg .ROUTE .STK-MED ONE Stop: 04/19/21 09:21 Last Admin: 04/19/21 19:16 Dose: Not Given Documented by: Ropivacaine (Naropin 0.2%) Confirm Administered Dose 200 mls @ as directed .ROUTE .STK-MED ONE Stop: 04/19/21 09:22 Last Admin: 04/19/21 19:16 Dose: Not Given Documented by: Lidocaine (Lidocaine 2% 5 Ml Sdv) Confirm Administered Dose 5 ml .ROUTE .STK-MED ONE Stop: 04/19/21 09:22 Last Admin: 04/19/21 19:16 Dose: Not Given Documented by: Misoprostol (Misoprostol 25 Mcg (1/4 Of 100 Mcg) Tab) 25 mcg PO ONETIME ONE Stop: 04/19/21 01:40 Last Admin: 04/19/21 01:54 Dose: Not Given Documented by: Misoprostol (Misoprostol 25 Mcg (1/4 Of 100 Mcg) Tab) 25 mcg VAG ONETIME ONE Stop: 04/19/21 01:40 Last Admin: 04/19/21 01:51 Dose: 25 mcg Documented by: - Interaction Disposition, : [place] to Nursery Interaction: Unable to Hold Infant at this Time (baby under bili lights) Feeding: Bottle Fed Support Person: - Recovery Exam Fundal Tone: Firm Fundal Level: 1 Fingerbreadths Below Umbilicus Fundal Placement: Midline Lochia Amount: Scant Lochia Color: Rubra/Red Other Perinuem Description: first degree lac with repair Bladder Status: Voiding Urinary Elimination: Voided - Exam General: Alert, Oriented Neck: Supple Lungs: Normal Respiratory Effort GI/Abdominal Exam: Soft, Non-Tender, No Distention Extremities: Non-Tender, No Pedal Edema Skin: Warm, Dry, Intact Neurological: No New Focal Deficit Psy/Mental Status: Alert, Normal Affect, Normal Mood - Problem List & Annotations (1) Vaginal delivery SNOMED Code(s): 380860073 Code(s): O80 - ENCOUNTER FOR FULL-TERM UNCOMPLICATED DELIVERY Status: Acute Current Visit: No - Problem List Review Problem List Initiated/Reviewed/Updated: Yes - My Orders Last 24 Hours: My Active Orders 04/21/21 08:57 Ready for Discharge [RC] PER UNIT ROUTINE - Assessment Assessment:: 31 year old G4 now P3013 female PPD2 s/p at 39w0d - Plan Plan:: Routine cares * Rh positive, rubella immune, GBS negative * PO pain medication ordered PRN * Regular diet as tolerated Dispo: Patient stayed overnight due to baby's bilirubin level. Plan discharge home today. Reviewed discharge instructions/precautions. All questions answered.
== END 2021-04-21 10:25 | disposition home or self-care (01) | DRG 560 ==
LOC: MW.OBCHECK → MW.OB 00:01 → MW.OBCHECK 00:01 → MW.OB 00:05 → MW.OBCHECK 00:05 → OBSVTOIN 12:38 → MW.OB 15:30
PROVIDERS: ADMIT Obstetrics & Gynecology; ATTEND Obstetrics & Gynecology
PROC: 10E0XZZ Delivery of Products of Conception, External Approach (ICD-10-PCS; principal; 2021-04-19)
PROC: 3E0R3BZ Introduction of Anesthetic Agent into Spinal Canal, Percutaneous Approach (ICD-10-PCS; 2021-04-19)
PROC: 00HU33Z Insertion of Infusion Device into Spinal Canal, Percutaneous Approach (ICD-10-PCS; 2021-04-19)
PROC: 0HQ9XZZ Repair Perineum Skin, External Approach (ICD-10-PCS; 2021-04-19)
DX: O69.81X0 Labor and delivery complicated by cord around neck, without compression, not applicable or unspecified (principal); Z3A.39 39 weeks gestation of pregnancy; Z37.0 Single live birth; O70.0 First degree perineal laceration during delivery; Z20.822 Contact with and (suspected) exposure to COVID-19
CPT/HCPCS: 01967; 36415; 51702; 59025; 59409; 85014; 85018; 85027; 86592; 86850; 86900; 86901; A9270-GY; J0595; J2405; J2590; J2795; J3010; J7120; U0002